=== PATIENT | male | born 1975 | race Caucasian/White ===

== ENCOUNTER → 2021-04-09 | Outpatient (CLI) | payer BC ==
--- NOTE | 2021-04-11 09:58 | PE ---
EXAMINATION TYPE: PET CT fusion skull to thigh DATE OF EXAM: 04/09/2021 COMPARISON: NONE HISTORY: Newly diagnosed colon cancer on liver biopsy April 06. TECHNIQUE: Following the intravenous administration of 12.65 mCi of F-18 FDG, whole body images are performed from the skull base to the midthigh. Images are reviewed on the computer in the coronal, a xial, and sagittal planes. Reconstructed rotating images are created on independent workstation and reviewed on the computer. A localization and attenuation correction CT is performed in conjunction with the PET scan. Blood glucose level equals 98 SCAN: Initial Scan FINDINGS: SKULL BASE AND NECK: Abnormal enlarged mildly hypermetabolic lymph node right neck adjacent to right thyroid lobe axial image 68 measuring 1.4 x 1.4 cm, max SUV is less than 2.5. CHEST, MEDIASTINUM, AND HILAR REGION: Mild to moderate underlying emphysematous change. Mild scattere d linear scarring and/or atelectasis in the lower lungs. No suspicious hypermetabolic parenchymal nod ules. There is however enlarged mildly hypermetabolic 2.2 x 1.7 cm right paracarinal lymph node axial image 95, max SUV is less than 2.5. ABDOMEN AND PELVIS: Marked hepatomegaly with innumerable heterogeneous hypermetabolic masses almost h aving confluent appearance occupying majority of the upper to mid abdominal peritoneal cavity with lo matty mass effect. Max SUV is 10.85 in the left hepatic lobe axial image 151. Small amount of surroundi ng ascites. Discrete masses are difficult to distinctly measure due to diffuse confluent involvement. The max SUV is. Normal excretion. No additional areas of abnormal hypermetabolic uptake. No significant bowel uptake, distinct hypermetabolic colonic lesion not clearly identified. OSSEOUS STRUCTURES: No areas of abnormal hypermetabolic uptake. OTHER CT: No significant abnormality. IMPRESSION: Primary colonic neoplasm not well-visualized. Marked hepatomegaly with diffuse hepatic me tastatic disease. Suspicious single paracarinal and right neck nonspecific lymph nodes noted.
== END | disposition home or self-care (01) ==
LOC: RADPETMAIN 10:04
PROVIDERS: ATTEND Internal Medicine Hematology & Oncology
DX: C18.9 Malignant neoplasm of colon, unspecified (principal); C78.7 Secondary malignant neoplasm of liver and intrahepatic bile duct
CPT/HCPCS: 78815; A9552